=== PATIENT | male | born 1965 | race Caucasian/White ===

== ENCOUNTER 2017-05-31 17:22 | Emergency (ER) | payer OTHER ==
[2017-05-31 17:34] VITALS: RESP 18
[2017-05-31] MEDS ORDERED: KETOROLAC 60 MG/2 ML VIAL IM STA (19:14)
[2017-05-31] MEDS ORDERED: CYCLOBENZAPRINE 10MG STARTER 3 TAB BTL PO STA (19:17)
--- NOTE | 2017-05-31 19:22 | ED ---
General Adult HPI - General Chief complaint: Recheck/Abnormal Lab/Rx Stated complaint: [facility] - RT RIB AND FLANK PAIN Time Seen by Provider: 05/31/17 19:02 Source: patient, RN notes reviewed Mode of arrival: ambulatory Limitations: no limitations - History of Present Illness Initial comments: Patient 51-year-old male presenting to the emergency room today with a chief complaint of right sided pain that began at work approximate 4 hours ago. He states that he was at work working and he went to do a twisting motion and felt instant pain to the right side flank area. States he did take some Aleve. States that pain is worse with movements. He denies any other complaints or symptoms. Patient denies any recent fever, chills, shortness of breath, chest pain, back pain, abdominal pain, nausea or vomiting, numbness or tingling, headaches or visual changes, or any other complaints. - Related Data Previous Rx's Medication Instructions Recorded Cyclobenzaprine [Flexeril] 10 mg PO TID #20 tab 05/31/17 Ibuprofen [Motrin] 800 mg PO Q6HR #30 tab 05/31/17 Allergies Allergy/AdvReac Type Severity Reaction Status Date / Time No Known Allergies Allergy Verified 05/31/17 17:34 Review of Systems ROS Statement: Those systems with pertinent positive or pertinent negative responses have been documented in the HPI. ROS Other: All systems not noted in ROS Statement are negative. Past Medical History Past Medical History: No Reported History History of Any Multi-Drug Resistant Organisms: None Reported Past Surgical History: Hernia Repair Past Psychological History: No Psychological Hx Reported Smoking Status: Current every day smoker Past Alcohol Use History: Occasional Past Drug Use History: Marijuana General Exam - General Exam Comments Initial Comments: General: The patient is awake and alert, in no distress, and does not appear acutely ill. Eye: Pupils are equal, round and reactive to light, extra-ocular movements are intact. No nystagmus. There is normal conjunctiva bilaterally. No signs of icterus. Ears, nose, mouth and throat: There are moist mucous membranes and no oral lesions. Neck: The neck is supple, there is no tenderness or JVD. Cardiovascular: There is a regular rate and rhythm. No murmur, rub or gallop is appreciated. Respiratory: Lungs are clear to auscultation, respirations are non-labored, breath sounds are equal. No wheezes, stridor, rales, or rhonchi. Gastrointestinal: Soft, non-distended, non-tender abdomen without masses or organomegaly noted. There is no rebound or guarding present. No CVA tenderness. Musculoskeletal: Normal ROM. Patient is tender in the right lateral rib area and just under into the soft tissue muscular area. Pain reproduced on palpation and with rotation and certain movements. Strength 5/5. Sensation intact. Pulses equal bilaterally 2+. Neurological: A&O x 3. CN II-XII intact, There are no obvious motor or sensory deficits. Coordination appears grossly intact. Speech is normal. Skin: Skin is warm and dry and no rashes or lesions are noted. Psychiatric: Cooperative, appropriate mood & affect, normal judgment. Limitations: no limitations Course Vital Signs 05/31/17 17:31 Temperature 98.6 F Pulse Rate 77 Respiratory 18 Rate Blood Pressure 121/77 O2 Sat by Pulse 96 Oximetry Medical Decision Making - Medical Decision Making Patient's symptoms seemed muscular as he was at work and he was twisting and felt instant pain. Patient's pain is reproduced with movements and auscultation. [place] to be mostly skeletal be started on anti-inflammatories and muscle relaxers. Patient advised that muscle relaxant may make him drowsy. Advised to follow-up with employee health tomorrow. Advised to return for any other concerns. Disposition Clinical Impression: Muscle strain Disposition: HOME SELF-CARE Condition: Good Instructions: Muscle Strain (ED) Additional Instructions: Please use medications as prescribed. Please be aware the muscle relaxant may make you drowsy. Please follow-up with employee health tomorrow. Please return to emergency room for any other concerns. Prescriptions: Cyclobenzaprine [Flexeril] 10 mg PO TID #20 tab Ibuprofen [Motrin] 800 mg PO Q6HR #30 tab Referrals: Jonathan Faust MD [Primary Care Provider] - 1-2 days Time of Disposition: 19:20
[2017-05-31 19:46] VITALS: BP 138/93; PULSE 70; TEMP 98
== END 2017-05-31 19:51 | disposition home or self-care (01) ==
LOC: EC 17:22
DX: S39.011A Strain of muscle, fascia and tendon of abdomen, initial encounter (principal); F17.200 Nicotine dependence, unspecified, uncomplicated; Z53.20 Procedure and treatment not carried out because of patient's decision for unspecified reasons; X50.1XXA Overexertion from prolonged static or awkward postures, initial encounter; Y92.69 Other specified industrial and construction area as the place of occurrence of the external cause; Y99.0 Civilian activity done for income or pay
CPT/HCPCS: 99283